=== PATIENT | male | born 1970 | race Caucasian/White ===

== ENCOUNTER 2018-08-15 14:04 | Emergency (ER) | payer MEDICARE ==
[~2018-08-15] VITALS: Ht 177.8 cm; Wt 106.8 kg
[2018-08-15 14:11] VITALS: Ht 177.8 cm; Wt 106.8 kg
[2018-08-15] MEDS ORDERED: RIOMET500 MG/5 M (14:11)
[2018-08-15 15:20] LABS: APPEARANCE CLEAR (CLEAR); COLOR YELLOW (YELLOW)
[2018-08-15 15:21] LABS: BILIRUBIN NEGATIVE (NEGATIVE); GLUCOSE NEGATIVE (NEGATIVE); KETONE NEGATIVE (NEGATIVE); NITRITE NEGATIVE (NEGATIVE); PROTEIN NEGATIVE (NEGATIVE); UROBILINOGEN NORMAL (NORMAL)
[2018-08-15] MEDS ORDERED: ZOFRAN8 MG PO (19:12)
[2018-08-15] MEDS ORDERED: TORADOL10 MG PO (19:12)
[2018-08-15 19:28] VITALS: BP 131/74
== END 2018-08-15 19:28 | disposition home or self-care (01) ==
LOC: D.ER 14:04
PROVIDERS: Family Medicine
DX: N50.811 Right testicular pain (principal); R10.31 Right lower quadrant pain